=== PATIENT | male | born 1990 ===

== ENCOUNTER 2023-05-09 17:56 | Emergency (ER) | payer OTHER, SELFPAY ==
[2023-05-09 18:41] VITALS: BP 118/74; PULSE 108; RESP 18; TEMP 36.6; O2SAT 97; BMI 35.8
--- NOTE | 2023-05-09 18:47 | ED_ITS ---
HPI - General Adult General Chief complaint: Extremity Injury, Lower Stated complaint: Stepped on vinay nail Time Seen by Provider: 05/09/23 18:53 Source: patient Mode of arrival: ambulatory Limitations: no limitations History of Present Illness HPI narrative: Patient is a 32-year-old male presenting to the emergency department with complaint of puncture wound to right foot. States he was outside on break at work and stepped on a piece of plywood with a vinay nail sticking out. Was wearing work boots at the time. States he removed the nail and went back to work, went home and showered before coming to the ED. States the area bled following the injury. Unsure last tetanus. MD complaint: puncture wound to foot Onset (ago): hour(s) Location: lower extremity Radiation: non-radiation Severity: mild Associated symptoms: denies other symptoms Treatments prior to arrival: none Related Data Previous Rx's Medication Instructions Recorded amoxicillin 875 mg-potassium 1 tab PO Q12H #14 tabs 05/09/23 clavulanate 125 mg tablet Allergies Allergy/AdvReac Type Severity Reaction Status Date / Time No Known Allergies Allergy Unverified 05/11/20 16:58 Review of Systems 2 Review of Systems: As per HPI. Yes all other systems are reviewed and are negative Constitutional: Constitutional: Reports as per HPI [facility] Social History Social History Advance Directives: No Advance Directives Information Provided: No Physical Exam ED Vital Signs: Vital Signs - 24 hr 05/09/23 18:41 Temperature 97.9 F Pulse Rate 108 H Respiratory Rate 18 Blood Pressure 118/74 Pulse Oximetry 97 Oxygen Delivery Method Room Air BMI result Body Mass Index 35.8 Vital signs have been reviewed and appear to be correct. Blood pressure normal. Heart rate normal. Respiratory rate normal. Temperature normal. Oxygen saturation normal. Const General: cooperative, healthy appearing and no acute distress Orientation/consciousness: oriented to person, oriented to place, oriented to time and patient oriented x3 Limitations: no limitations HENMT Head: Yes normocephalic and Yes atraumatic Ears: external ears normal General nose exam: Normal external nose present Face and sinus: Yes face symmetric Mouth: oropharynx normal and moist mucous membranes Throat: Yes uvula midline Eyes Pupils: Equal, round and reactive pupils present Neck Neck: Yes normal visual inspection and Yes supple Resp Effort & Inspection: normal respiratory effort and able to speak in complete sentences Auscultation: clear to auscultation bilaterally Cardio Rate: regular rate Rhythm: regular rhythm Heart sounds: S1 normal heart sound present and S2 normal heart sound present GI Palpation (GI): Soft to palpation and nontender Auscultation: normoactive bowel sounds General: Yes no CVA tenderness Back/Spine/Pelvis Back: no CVA tenderness Skin General skin exam: elasticity normal and turgor normal Trauma: puncture (<1cm puncture wound to plantar surface of right foot, lateral posterior ) Neuro General: oriented to person, oriented to place, oriented to time, patient oriented x3, moves all extremities, no focal motor deficits and CN's II-XI intact bilaterally Cranial nerves: Yes Equal, round and reactive pupils present Cognition (Neuro): normal cognition Extrem General: Yes full ROM, Yes no pedal edema and Yes no calf tenderness Ankle/foot/toe images: 2 1. puncture wound Psych Mental Status: mental status grossly normal Affect: normal affect Thought process: Normal thought process present Medications Administered Discontinued Medications Generic Name Dose Route Start Last Admin Trade Name Freq PRN Reason Stop Dose Admin Diphtheria/Tetanus/Acell Pertussis 0.5 ml 05/09/23 18:53 05/09/23 18:56 Diphth,Pertus(Acell),Tet Adult 0.5 Ml Syringe IM 05/09/23 18:54 0.5 ml .ONCE ONE Administration Medical Decision Making Medical Decision Making MDM Narrative: Patient is a 32-year-old male presenting to the emergency department with complaint of puncture wound to right foot. On exam patient is awake, A+Ox3, VS WNL, afebrile, normal neurological exam without focal deficits, <1cm puncture wound noted to plantar aspect of right lateral foot without surrounding erythema, discharge, drainage. Given reported symptoms and physical exam findings, initial differential includes puncture wound, cellulitis, tetanus exposure. Patient declining x-ray as he states he is on his way to [place]. Tdap updated. Will cover with Augmentin. Advised patient to assess area daily for signs of infection and to be re-evaluated either here or in [place] if this occurs. Return precautions discussed. Instructed patient to follow up with PCP. Patient verbalized understanding of and agreement with plan. Differential Diagnosis Differential Diagnoses: The differential diagnosis associated with the presentation includes As per MDM. External Record Review External record reviewed: Inpatient record, Office record and Outpatient record Tests considered The following testing was considered but not selected: Advised x-ray which patient declined Prescription Management I considered prescription management with: Antibiotic Discharge Plan Discharge Clinical Impression: Puncture wound of foot Qualifiers: Encounter type: initial encounter Laterality: right Qualified Code(s): S91.331A - Puncture wound without foreign body, right foot, initial encounter Patient Disposition: Home, Self-Care Instructions: Puncture Wound (DC), Puncture Wound in the Foot (ED) Additional Instructions: You have been evaluated in the emergency department today for a puncture wound to your foot. Please keep the area surrounding the laceration clean and dry. Please keep the area covered with a bandaid, change the bandaid and assess the wound daily. You are being prescribed antibiotics to prevent infection, please complete full course as prescribed. If you develop fever, redness or swelling at the site of your wound, or thick yellow drainage please come back to the ER for a wound check. Your Tdap (tetanus vaccine) was updated in the ED today. Prescriptions: New amoxicillin-pot clavulanate 875-125 mg tablet 1 tab PO Q12H Qty: 14 0RF Interventions: ED Discharge Assessment Last Done: 05/09/23 19:08 Discharge Date/Time: 05/09/23 19:08
[2023-05-09] MEDS: Diphth,Pertus(ACell),Tet Adult 0.5 ML SYRINGE IM (18:56)
== END 2023-05-09 19:08 | disposition home or self-care (01) ==
PROVIDERS: Emergency Provider Emergency Medicine Emergency Medical Services
DX: S91.341A Puncture wound with foreign body, right foot, initial encounter (principal); W45.0XXA Nail entering through skin, initial encounter; Y93.9 Activity, unspecified; Y92.9 Unspecified place or not applicable; Y99.9 Unspecified external cause status
CPT/HCPCS: 90471; 90715; 99282; 99284

== ENCOUNTER 2023-05-24 13:03 | Emergency (ER) | payer OTHER, SELFPAY ==
--- NOTE | ~2023-05-24 | CT_ITS ---
EXAMINATION: CT HEAD WITHOUT CONTRAST CLINICAL INFORMATION: Seizure COMPARISON: None available. TECHNIQUE: Contiguous axial imaging was performed from the skull base to vertex without intravenous administration of contrast. This CT examination was performed using dose optimization techniques as appropriate, variously including the following: *Automated exposure control *Adjustment of mA and/or kV according to patient size (this includes techniques or standardized protocols for targeted exams where dose is matched to indication/reason for exam; i.e. extremities or head) *Use of iterative reconstruction technique DLP: 669 mGy-cm FINDINGS: There is no acute intra-axial, extra-axial bleed, masses or midline shift. There is no acute infarction in evolution. There is no edema. Moore to white matter differentiation is maintained normal. The lateral ventricles are symmetrical in size and configuration without enlargement. Bone windows reveal no calvarial abnormality. There is no scalp soft tissue swelling. Bilateral paranasal sinuses and mastoid air cells are well-aerated. CT/CT head/brain wo IV con IMPRESSION: No acute intracranial process seen.
[2023-05-24 13:10] VITALS: BP 116/78; PULSE 98
[2023-05-24 13:11] VITALS: BP 125/69; PULSE 87; RESP 20; TEMP 36.8; O2SAT 92
[2023-05-24 13:13] VITALS: BP 125/69; PULSE 92; RESP 18; TEMP 36.8; O2SAT 99; BMI 35.9
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
[2023-05-24 14:39] LABS: MANUAL DIFF FLAG NO
[2023-05-24 14:45] LABS: Basophils Percent Auto 0.5 % (0-2); Mean Corpuscular Volume 84.8 fL (80.0-98.0); SCAN SMEAR FLAG 1
[2023-05-24 14:47] LABS: Eosinophils Absolute Auto 0.1 X10*3/uL (0.0-0.4); Eosinophils Percent Auto 1.1 % (0-4); Hematocrit 47.5 % (42.0-52.0); Hemoglobin 15.8 g/dl (14.0-18.0); Imm Gran Abs Auto 0.01 X10*3/uL (0.00-0.03); Imm Gran Pct Auto 0.2 % (0.0-0.4); Lymphocytes Absolute Auto 1.3 X10*3/uL (1.2-4.9); Lymphocytes Percent Auto 22.4 % (20-40); Mean Corpuscular HGB Conc 33.3 g/dl (31.0-36.0); Mean Corpuscular Hemoglobin 28.2 pg (27.0-33.0); Mean Platelet Volume 13.4 fL (9.4-12.4); Monocytes Absolute Auto 0.5 X10*3/uL (0.1-1.2); Monocytes Percent Auto 8.8 % (2-11); Neutrophils Absolute Auto 3.8 x10*3/uL (2.0-8.3); Platelet Count 140 X10*3/uL (160-400); Red Cell Distribution Width 14.1 % (11.0-16.0); White Blood Count 5.7 X10*3/uL (4.8-10.8)
[2023-05-24 14:48] LABS: PLT ABN DIST 1
[2023-05-24 14:57] LABS: Alanine Aminotransferase 36 U/L (0-40); Albumin Level 4.6 g/dL (3.5-5.0); Alkaline Phosphatase 55 U/L (39-117); Anion Gap 15 (12-20); Aspartate Amino Transferase 24 U/L (5-37); Bilirubin Total 0.8 mg/dL (0.0-1.0); Blood Urea Nitrogen 11 mg/dL (9-16); Calcium 9.2 mg/dL (8.4-10.2); Carbon Dioxide 23 mmol/L (22-29); Chloride 108 mmol/L (96-108); Creatinine Clr Calc Pharmacy 139.3; Estimated Glomerular Filt Rate > 60; Ethanol < 10 mg/dL; Glucose Random 87 mg/dL (60-115); Magnesium 2.2 mg/dL (1.6-2.6); Potassium 4.1 mmol/L (3.3-5.1); Sodium 142 mmol/L (135-145); Total Protein 7.1 g/dL (6.5-8.0)
--- NOTE | 2023-05-24 15:46 | MHC.EDTECH ---
THIS PCT ASSUMED CARE OF PT AT 1500 ,THIS PCT NOTICE PATIENT EKG WAS NOT DONE ,ASKED PROVIDER IF STILL NEEDED ,PROVIDER NAM SAID NO NOT TO BOTHER GETTING EKG .
== END 2023-05-24 15:52 | disposition home or self-care (01) ==
PROVIDERS: Physician Assistant Medical; Emergency Provider Emergency Medicine
DX: R56.9 Unspecified convulsions (principal)
CPT/HCPCS: 36415; 70450; 80053; 80307; 83735; 85025; 99284

== ENCOUNTER 2023-08-23 18:17 | Emergency (ER) | payer OTHER, SELFPAY ==
--- NOTE | ~2023-08-23 | CT_ITS ---
EXAMINATION: CT HEAD WITHOUT CONTRAST CLINICAL INFORMATION: Fall, hit head. COMPARISON: CT head 05/24/2023. TECHNIQUE: Contiguous axial imaging was performed from the skull base to vertex without intravenous administration of contrast. This CT examination was performed using dose optimization techniques as appropriate, variously including the following: *Automated exposure control *Adjustment of mA and/or kV according to patient size (this includes techniques or standardized protocols for targeted exams where dose is matched to indication/reason for exam; i.e. extremities or head) *Use of iterative reconstruction technique DLP: 688 mGy-cm FINDINGS: There is no evidence of acute intracranial hemorrhage or edematous territorial infarction. There is no abnormal attenuation within the brain parenchyma. Moore-white matter differentiation is preserved. The ventricles are normal in size and configuration. No evidence for obstructive hydrocephalus. No abnormal mass effect or midline shift. No extra-axial fluid collections. Small scalp hematoma at the the level of skull vertex. No acute osseous findings. The mastoid air cells and paranasal sinuses are clear. CT/CT head/brain wo IV con IMPRESSION: 1. Small scalp hematoma at the level of skull vertex. 2. No evidence of acute intracranial hemorrhage or edematous territorial infarction.
[2023-08-23 18:24] VITALS: BP 130/82; PULSE 92; O2SAT 98
[2023-08-23 18:40] VITALS: BP 136/82; PULSE 97; RESP 18; TEMP 35.9; BMI 36.5
--- NOTE | 2023-08-23 19:05 | ED_ITS ---
HPI - General Adult General Chief complaint: Overdose Stated complaint: ?OD NON COMPLIANT Time Seen by Provider: 08/23/23 18:25 Source: patient, family, EMS and RN notes reviewed Mode of arrival: EMS Limitations: no limitations History of Present Illness HPI narrative: 32-year-old male with no significant past medical history is here today brought in by EMS services. Patient was found outside on the ground. Cooperative. Patient reports that he was running to his house when he fell. Patient states that that was a mechanical fall, no dizziness, no presyncope or syncope. Patient reports that his boots had no speech pathology assistant and he lost his balance and fell. Patient reports that he hit his head. Unsure if he was unresponsive, however per EMS. Patient was seen back in April for possible seizure. He never see n a neurologist or taking any medications for it. Patient denies any abdominal pain, nausea, vomiting, blurry or double vision, chest pain, chest pressure, SOB with or without exertion, back pain, rib pain, bladder or bowel incontinence. Patient denies any melena, hematochezia Related Data Previous Rx's Medication Instructions Recorded amoxicillin 875 mg-potassium 1 tab PO Q12H #14 tabs 05/09/23 clavulanate 125 mg tablet Allergies Allergy/AdvReac Type Severity Reaction Status Date / Time No Known Allergies Allergy Unverified 05/11/20 16:58 Review of Systems Constitutional: Constitutional: Reports headache(s), Denies weight gain and Denies weight loss ENT: Denies dysphagia, Reports headache(s) and Denies odynophagia Cardiovascular: Cardiovascular: Reports no additional cardiovascular complaints Respiratory: Respiratory: Reports no additional respiratory complaints Gastrointestinal: Gastrointestinal: Denies abdominal pain, Denies belching, Denies melena, Denies bloating, Denies change in bowel habits, Denies dysphagia, Denies excessive flatus, Denies dyspepsia, Denies heartburn, Denies diarrhea, Denies loose stools, Denies nausea, Denies odynophagia and Denies vomiting Genitourinary: Genitourinary: Reports no additional male genitourinary complaints Musculoskeletal: Musculoskeletal: Reports no additional musculoskeletal complaints Neurologic: Reports system reviewed and no additional complaints, except as documented, Reports Abnormal speech present and Reports headache(s) Psychiatric: Psychiatric: Reports no additional psychiatric complaints Endocrine: Endocrine: Reports no additional endocrine complaints [facility] Social History Social History Smoked in Last 30 Days: No Advance Directives: No Advance Directives Information Provided: Yes Physical Exam ED Vital Signs: Vital Signs - 24 hr 08/23/23 18:40 Temperature 96.6 F L Pulse Rate 97 Respiratory Rate 18 Blood Pressure 136/82 Oxygen Delivery Method Room Air BMI result Body Mass Index 36.5 Const General: healthy appearing, no acute distress and well developed Orientation/consciousness: patient oriented x3 HENMT Head: Yes normal to inspection, Yes No palpable skull fracture present, Yes normocephalic, No Figueroa's sign and Yes hematoma Ears: hearing grossly normal bilaterally, external ears normal and TM's normal bilaterally General nose exam: Normal external nose present, Normal nares present, Normal nasal mucous membranes and turbinates present and Normal septum present Face and sinus: Yes normal facial exam Mouth: Normal oral and palatal mucosa present Throat: Yes posterior oropharynx normal, Yes tonsils normal and Yes uvula midline Eyes General: appearance normal, both eyes and all related structures Neck Neck: Yes normal visual inspection, Yes full ROM and Yes trachea midline Thyroid: Thyroid normal Resp Effort & Inspection: normal respiratory effort, able to speak in complete sentences, no tracheal deviation and symmetric chest movement Auscultation: clear to auscultation bilaterally Cardio Rate: regular rate GI Inspection: Yes normal to inspection and No distended Palpation (GI): Soft to palpation, not firm, nontender and No hepatosplenomegaly present Auscultation: normal bowel sounds General: Yes no CVA tenderness Back/Spine/Pelvis Back: no CVA tenderness Skin General skin exam: elasticity normal, turgor normal and dry skin Neuro General: patient oriented x3 Cranial nerves: Yes CN's II-XII intact bilaterally Cognition (Neuro): normal cognition Speech: Abnormal speech present Gait exam (Neuro): Normal gait present Motor exam (neuro): 5/5 motor strength present throughout Sensory Exam: Normal double simultaneous stimulation for sensation Coordination: [id number] test normal Comatose Patient: corneal reflex present Extrem General: Yes normal to inspection, Yes full ROM and Yes capillary refill normal Psych Appearance: grossly normal Mental Status: mental status grossly normal Course Course Course Narrative: 32-year-old male with no significant past medical history is here today brought in by EMS services. Patient was found outside on the ground. Cooperative. Patient reports that he was running to his house when he fell. Patient states that that was a mechanical fall, no dizziness, no presyncope or syncope. Mitchell celaya reports that his boots had no speech pathology assistant and he lost his balance and fell. Patient reports that he hit his head. Unsure if he was unresponsive, however per EMS. Patient was seen back in April for possible seizure. He never seen a neurologist or taking any medications for it. Patient denies any abdominal pain, nausea, vomiting, blurry or double vision, chest pain, chest pressure, SOB with or without exertion, back pain, rib pain, bladder or bowel incontinence. Patient denies any melena, hematochezia. Patient has hematoma of the head, will order CT of the head. Reevaluation(s) Reevaluation #1: CT scan negative for any abnormalities. Will send patient home. Patient denies any headache, dizziness. Patient's mom is at the bedside. Medical Decision Making Differential Diagnosis Differential Diagnoses: The differential diagnosis associated with the presentation includes Concussion, bleed, skull fracture Independent Interpretation I performed an independent interpretation of an: CT Scan Radiology Impression Discussion of test interpretation with radiology: I have reviewed the radiologist's reading. Radiologist Impression: FINDINGS: There is no evidence of acute intracranial hemorrhage or edematous territorial infarction. There is no abnormal attenuation within the brain parenchyma. Moore-white matter differentiation is preserved. The ventricles are normal in size and configuration. No evidence for obstructive hydrocephalus. No abnormal mass effect or midline shift. No extra-axial fluid collections. Small scalp hematoma at the the level of skull vertex. No acute osseous findings. The mastoid air cells and paranasal sinuses are clear. CT/CT head/brain wo IV con IMPRESSION: 1. Small scalp hematoma at the level of skull vertex. 2. No evidence of acute intracranial hemorrhage or edematous territorial infarction. Independent Historian Clinical information obtained from an independent historian. History obtained from or confirmed by: Parent and EMS Discharge Plan Discharge Clinical Impression: Fall, Head concussion Patient Disposition: Home, Self-Care Instructions: Concussion (ED) Additional Instructions: You were seen in the ER after falling. Your CT scan was negative for any acute findings. Please apply ice for the last 3 days to injury. Please follow-up w ith your primary care doctor next week. You may return to emergency department if you will experience any concerning symptoms. Prescriptions: No Action amoxicillin-pot clavulanate 875-125 mg tablet 1 tab PO Q12H Qty: 14 0RF Interventions: ED Discharge Assessment Last Done: 08/23/23 22:01 Discharge Date/Time: 08/23/23 22:02 Print Language: Faroese
--- NOTE | 2023-08-23 19:29 | PC.NURSE ---
assumed care pt of bud in per other nurse
== END 2023-08-23 22:02 | disposition home or self-care (01) ==
PROVIDERS: Emergency Provider Emergency Medicine
DX: S06.0X0A Concussion without loss of consciousness, initial encounter (principal); W01.10XA Fall on same level from slipping, tripping and stumbling with subsequent striking against unspecified object, initial encounter; Y93.9 Activity, unspecified; Y92.9 Unspecified place or not applicable; Y99.9 Unspecified external cause status; Z91.199 Patient's noncompliance with other medical treatment and regimen due to unspecified reason; Z79.899 Other long term (current) drug therapy
CPT/HCPCS: 70450; 99284